=== PATIENT | female | born 1990 | race Caucasian/White ===

== ENCOUNTER 2017-03-02 07:29 | Inpatient (IN) | payer BC ==
[~2017-03-02] VITALS: Ht 157.5 cm; Wt 85.0 kg
[2017-03-02] VITALS (7 sets, daily range): BP systolic 116–132; BP diastolic 65–86
[~2017-03-02 07:29] MED LIST: ASPIRIN81 M2 PO; BENADRYL50 MG PO; PRENATAL TABLE1 EAC3 PO
[2017-03-02] MEDS ORDERED: ROBITUSSIN NIG237 ML PO (08:21)
[2017-03-02] MEDS ORDERED: PERCOCET 5/31 TABLET PO (13:55)
[2017-03-02] MEDS ORDERED: MOTRIN800 MG PO (13:55)
[2017-03-03 07:02] LABS: EOSINOPHIL (%) 0.2 % (0-5); HEMATOCRIT 27.8 % (36.0-46.0); IMMATURE GRANULOCYTE (%) 0.5 % (0.0-0.7); IMMATURE GRANULOCYTE COUNT 0.1 K/uL; LYMPHOCYTE COUNT 2.4 K/uL (1.0-2.8); MCH 26.6 PG (29.0-34.0); MCV 83.2 FL (83-99); MEAN PLAT.VOLUME 10.5 uM^3 (9.5-12.4); MONOCYTE (%) 7.5 % (3-12); NEUTROPHIL (%) 74.2 % (45-76); PLATELET COUNT 149 K/uL (156-360); RBC DIS.WIDTH-CV 14.3 % (11.8-14.6); RBC DIS.WIDTH-SD 41.7 % (39-53); RED BLOOD COUNT 3.34 M/uL (3.80-5.20); WHITE BLOOD COUNT 13.4 K/uL (4.1-10.2)
[2017-03-03 07:41] VITALS: BP 112/55
[2017-03-03 11:14] VITALS: BP 113/57
[2017-03-03 16:06] VITALS: BP 112/55
[2017-03-03 19:43] VITALS: BP 115/60
[2017-03-03 23:17] VITALS: BP 117/65
[2017-03-04 03:12] VITALS: BP 111/53
[2017-03-04 07:21] VITALS: BP 127/75
[2017-03-04 15:54] VITALS: BP 133/79
[2017-03-04 23:16] VITALS: BP 124/67
[2017-03-05 07:40] VITALS: BP 131/72
[2017-03-06 08:00] VITALS: BP 141/70
== END 2017-03-06 14:00 | disposition home or self-care (01) | DRG 765 ==
LOC: 2WEST 07:29 → 2SOUTH 08:51 → 2WEST 03-06 14:00
PROVIDERS: Obstetrics & Gynecology
PROC: 10D00Z1 Extraction of Products of Conception, Low, Open Approach (ICD-10-PCS; principal; 2017-03-02)
DX: O99.02 Anemia complicating childbirth (principal); D62 Acute posthemorrhagic anemia; O30.033 Twin pregnancy, monochorionic/diamniotic, third trimester; Z37.2 Twins, both liveborn; Z3A.38 38 weeks gestation of pregnancy; Z88.5 Allergy status to narcotic agent; Z79.82 Long term (current) use of aspirin; Z79.1 Long term (current) use of non-steroidal anti-inflammatories (NSAID); D50.9 Iron deficiency anemia, unspecified; O99.013 Anemia complicating pregnancy, third trimester; Z83.3 Family history of diabetes mellitus; Z80.1 Family history of malignant neoplasm of trachea, bronchus and lung; Z81.1 Family history of alcohol abuse and dependence
CPT/HCPCS: 36415; 85025; 86850; 86900; 86901; 88307; J0690; J1100; J1170; J2274; J2405; J7120

== ENCOUNTER 2017-07-10 08:15 | Day surgery (SDC) | payer BC ==
[~2017-07-10] VITALS: Ht 157.5 cm; Wt 73.8 kg
[~2017-07-10 08:15] MED LIST changes: +MOTRIN800 MG PO; +PERCOCET 5/31 TABLET PO; +ROBITUSSIN NIG237 ML PO
[2017-07-10 09:37] LABS: BASOPHIL (%) 0.5 % (0-1); EOSINOPHIL (%) 4.1 % (0-5); EOSINOPHIL COUNT 0.3 K/uL (0-0.3); HEMATOCRIT 39.1 % (36.0-46.0); HEMOGLOBIN 12.9 G/DL (11.9-15.5); IMMATURE GRANULOCYTE (%) 0.2 % (0.0-0.7); LYMPHOCYTE (%) 23.6 % (15-42); MCH 27.1 PG (29.0-34.0); MCV 82.1 FL (83-99); MONOCYTE (%) 6.4 % (3-12); MONOCYTE COUNT 0.5 K/uL (0-0.8); NEUTROPHIL (%) 65.2 % (45-76); NEUTROPHIL COUNT 5.4 K/uL (1.8-6.4); PLATELET COUNT 263 K/uL (156-360); RBC DIS.WIDTH-CV 13.4 % (11.8-14.6); RED BLOOD COUNT 4.76 M/uL (3.80-5.20); WHITE BLOOD COUNT 8.3 K/uL (4.1-10.2)
[2017-07-10 09:52] LABS: CHLORIDE 106 mEq/L (99-109); POTASSIUM 4.2 mEq/L (3.7-5.4); SODIUM 138 mEq/L (136-147)
[2017-07-10 09:56] LABS: TOTAL BILIRUBIN < 0.1 mg/dL (0.0-1.0)
[2017-07-10 09:59] LABS: AST (GOT) 17 IU/L (2-34)
[2017-07-10 10:05] LABS: QUANTITATIVE HCG < 4.0 MIU/ML
[2017-07-10 10:08] LABS: ALBUMIN 4.2 g/dL (3.2-4.8)
[2017-07-10 10:11] LABS: GLUCOSE 90 mg/dL (70-99); TOTAL PROTEIN 7.1 g/dL (6.4-8.3)
[2017-07-10 10:14] LABS: ALKALINE PHOSPHATASE 59 IU/L (3-129)
[2017-07-10 10:15] LABS: CREATININE 0.8 mg/dL (0.6-1.3); GFR ESTIMATE (CALCULATED) > 59 mL/min/
[2017-07-10 10:16] LABS: UREA NITROGEN (BUN) 12 mg/dL (9-23)
[2017-07-10 10:17] LABS: ALT (GPT) 15 IU/L (3-49)
[2017-07-10 10:17] LABS: APPEARANCE SL.HAZY ((CLEAR)); BILIRUBIN NEGATIVE; BLOOD SMALL; COLOR YELLOW ((YELLOW)); GLUCOSE (STRIP) NEGATIVE; KETONES NEGATIVE; LEUKOCYTES TRACE; NITRITE NEGATIVE; PROTEIN (STRIP) NEGATIVE; SPECIFIC GRAVITY 1.013 (1.000-1.030); UROBILINOGEN 0.2 MG/DL (0.2-1.0)
[2017-07-10 10:35] LABS: BACTERIA NONE SEEN /HPF; EPITHELIAL CELLS 2+ /HPF; MUCUS TRACE /LPF; RED BLOOD CELLS 0-5 /HPF (0-5); UCUL ADDED? NO; WHITE BLOOD CELLS 0-5 /HPF (0-5)
[2017-07-10] MEDS ORDERED: MOTRIN800 MG PO (15:36)
[2017-07-10] MEDS ORDERED: IBUPROFEN800 MG PO (21:07)
[2017-07-10] MEDS ORDERED: ENDOCET 5-3251 EACH PO (21:07)
[2017-07-10 23:39] VITALS: BP 127/68
[2017-07-11 03:15] VITALS: BP 138/61
[2017-07-11 07:15] VITALS: BP 119/56
== END 2017-07-11 08:38 | disposition home or self-care (01) ==
LOC: EME 08:15 → SDC 19:42 → 2SOUTH 21:30 → ENRESERV 22:08 → 2EAST 23:23
PROVIDERS: Physician Assistant
DX: T83.89XA Other specified complication of genitourinary prosthetic devices, implants and grafts, initial encounter (principal); T83.39XA Other mechanical complication of intrauterine contraceptive device, initial encounter; Y76.2 Prosthetic and other implants, materials and accessory obstetric and gynecological devices associated with adverse incidents; K66.0 Peritoneal adhesions (postprocedural) (postinfection)
CPT/HCPCS: 76856; 80053; 81003; 84702; 85025; 88300; 99281; 99285; G0378; J1885; J2405; J2765; J3010; J7120; S0020